=== PATIENT | male | born 1950 | race Asian ===

== ENCOUNTER 2024-12-21 16:46 | Inpatient (IN) | payer MEDICARE ==
[~2024-12-21] VITALS: Ht 170.2 cm; Wt 60.0 kg
[2024-12-21] MEDS ORDERED: DILTIAZEM HCL 5 MG/ML 5 ML VIAL IVP ONE (17:02)
[2024-12-21] MEDS ORDERED: LABETALOL HCL 5 MG/ML 20 ML VIAL IVP ONE (17:03)
[2024-12-21] MEDS: LABETALOL HCL 5 MG/ML 20 ML VIAL IVP ONE ×2 (17:08→17:30)
[2024-12-21] MEDS ORDERED: 0.9% SODIUM CHLORIDE 10 ML SYRINGE IVP ONE ×2 (17:19→20:50)
[2024-12-21] MEDS ORDERED: SODIUM CHLORIDE 0.9% 100 ML ONE ×2 (17:19→20:50)
[2024-12-21] MEDS ORDERED: IOHEXOL 350 MG/ML 100 ML VIAL ONE ×2 (17:19→20:50)
[2024-12-21 17:20] LABS: PLATELET COUNT (AUTO) 216 K/uL (150-450); RED BLOOD CELL COUNT(AUTO) 5.28 MIL/uL (4.50-5.90); RED CELL DISTRIBUTION WIDTH 13.6 % (11.5-14.5); WHITE BLOOD COUNT (AUTO) 6.8 K/uL (4.5-11.0)
[2024-12-21 17:31] LABS: CALCIUM, TOTAL 9.0 mg/dL (8.8-10.5); CREATININE 0.88 mg/dL (0.60-1.30); GLOMERULAR FILTR. RATE CALC > 60 mL/min (>60); GLUCOSE,RANDOM 113 mg/dL (70-110); SODIUM SERUM 135 mmol/L (136-145); UREA NITROGEN, BLOOD 17 mg/dL (7-18)
[2024-12-21 17:35] LABS: ASPARTATE AMINOTRANSFERASE 27 U/L (15-37); CHOL/HDL RATIO 4.9 (4.2-7.3); LDL CHOL (CALC.) 166 mg/dL (0-130); TOTAL PROTEIN, SERUM 8.7 g/dL (6.4-8.2)
[2024-12-21] MEDS: ASPIRIN 325 MG TABLET PO ONE (17:39)
[2024-12-21] MEDS: CLOPIDOGREL BISULFATE 300 MG TABLET PO ONE (17:39)
[2024-12-21 17:42] LABS: APPEARANCE,URINE CLEAR (CLEAR); GLUCOSE, URINE (UA) NEGATIVE (NEGATIVE); LEUKOCYTE ESTERASE ,URINE NEGATIVE (NEGATIVE); NITRATE,URINE NEGATIVE (NEGATIVE); OCCULT BLOOD,URINE NEGATIVE (NEGATIVE); PH,URINE DRUG SCREEN 7.0 (5.0-8.0); SPECIFIC GRAVITIY, URINE 1.012 (1.003-1.030)
[2024-12-21 17:42] LABS: TROPONIN I-HIGH SENSITIVITY 849 ng/L (<76)
[2024-12-21 17:52] LABS: ALCOHOL, URINE DRUG SCREEN NEGATIVE (NEGATIVE); AMPHET/METH SCREEN,URINE NEGATIVE (NEGATIVE); BARBITURATE SCREEN, URINE NEGATIVE (NEGATIVE); CANNABINOID SCREEN,URINE NEGATIVE (NEGATIVE); COCAINE SCREEN,URINE NEGATIVE (NEGATIVE); METHADONE SCREEN, URINE NEGATIVE (NEGATIVE)
[2024-12-21 17:55] LABS: SQUAMOUS EPITHELIAL CELL,UR Rare /LPF (None Seen)
[2024-12-21] MEDS ORDERED: BISACODYL 10 MG RECTAL RECTAL SUPPOSITORY PR PRN (19:15)
[2024-12-21] MEDS ORDERED: ACETAMINOPHEN 325 MG TABLET PO PRN (19:15)
[2024-12-21] MEDS ORDERED: ONDANSETRON HCL 4 MG/2 ML VIAL IVP PRN (19:15)
[2024-12-21] MEDS ORDERED: ZOLPIDEM TARTRATE 5 MG TABLET PO PRN (19:15)
[2024-12-21] MEDS ORDERED: MAGNESIUM HYDROXIDE SUSPENSION 30 ML UDCUP PO PRN (19:15)
[2024-12-21] MEDS ORDERED: LABETALOL HCL 200 MG in DEXTROSE 5%-WATER 160 ML IV PRN (19:15)
[2024-12-21] MEDS ORDERED: MORPHINE SULFATE 4 MG/ML SYRINGE IVP PRN (19:15)
[2024-12-21] MEDS ORDERED: HYDROCODONE/ACETAMINOPHEN 5-325 MG TABLET PO PRN (19:15)
[2024-12-21] MEDS ORDERED: TENECTEPLASE 50 MG/10 ML KIT IVP ONE (20:34)
[2024-12-21] MEDS: TENECTEPLASE PER STROKE PROTOCOL CLINICAL ONE (20:48)
[2024-12-21] MEDS: DOCUSATE SODIUM 100 MG CAPSULE PO SCH (21:00)
[2024-12-21] MEDS: TENECTEPLASE 50 MG/10 ML KIT IVP ONE (21:01)
[2024-12-21 22:14] LABS: TROPONIN I-HIGH SENSITIVITY 905 ng/L (<76)
[2024-12-21 23:25] LABS: TROPONIN I-HIGH SENSITIVITY 889 ng/L (<76)
[2024-12-22 02:22] LABS: TROPONIN I-HIGH SENSITIVITY 888 ng/L (<76)
[2024-12-22 05:14] LABS: PLATELET COUNT (AUTO) 226 K/uL (150-450); RED BLOOD CELL COUNT(AUTO) 5.26 MIL/uL (4.50-5.90); RED CELL DISTRIBUTION WIDTH 13.5 % (11.5-14.5); WHITE BLOOD COUNT (AUTO) 9.6 K/uL (4.5-11.0)
[2024-12-22 05:34] LABS: CALCIUM, TOTAL 9.0 mg/dL (8.8-10.5); CREATININE 0.80 mg/dL (0.60-1.30); GLOMERULAR FILTR. RATE CALC > 60 mL/min (>60); GLUCOSE,RANDOM 144 mg/dL (70-110); SODIUM SERUM 136 mmol/L (136-145); UREA NITROGEN, BLOOD 18 mg/dL (7-18)
[2024-12-22 06:24] LABS: TROPONIN I-HIGH SENSITIVITY 890 ng/L (<76)
[2024-12-22 08:00] VITALS: BP 140/77; PULSE 75; PULSE 76; RESP 21; TEMP 98.4; O2SAT 98
[2024-12-22] MEDS: PANTOPRAZOLE SODIUM 40 MG DR TABLET PO SCH (09:00)
[2024-12-22] MEDS: ATORVASTATIN CALCIUM 40 MG TABLET PO SCH (09:00)
[2024-12-22 10:25] LABS: TROPONIN I-HIGH SENSITIVITY 843 ng/L (<76)
[2024-12-22 12:00] VITALS: BP 135/67; PULSE 76; PULSE 79; RESP 21; TEMP 98.4; O2SAT 98
[2024-12-22] MEDS: POTASSIUM CHL 10 MEQ/WATER 50 ML IV PRN (13:05)
[2024-12-22] MEDS ORDERED: SODIUM CHLORIDE 0.9% 250 ML IV ONE (13:07)
[2024-12-22 16:00] VITALS: BP 135/74; PULSE 73; PULSE 78; RESP 21; TEMP 98.8; O2SAT 98
[2024-12-22 20:00] VITALS: BP 119/43; PULSE 77; RESP 18; TEMP 98.5; O2SAT 98
[2024-12-23] VITALS: BP 109/45; PULSE 70; RESP 23; TEMP 98.8; O2SAT 99
[2024-12-23 04:00] VITALS: BP 133/62; PULSE 70; RESP 16; TEMP 98.6; O2SAT 96
[2024-12-23 06:09] LABS: CALCIUM, TOTAL 8.9 mg/dL (8.8-10.5); CREATININE 0.81 mg/dL (0.60-1.30); GLOMERULAR FILTR. RATE CALC > 60 mL/min (>60); GLUCOSE,RANDOM 108 mg/dL (70-110); SODIUM SERUM 138 mmol/L (136-145); UREA NITROGEN, BLOOD 25 mg/dL (7-18)
[2024-12-23 06:16] LABS: PLATELET COUNT (AUTO) 241 K/uL (150-450); RED BLOOD CELL COUNT(AUTO) 5.25 MIL/uL (4.50-5.90); RED CELL DISTRIBUTION WIDTH 13.7 % (11.5-14.5); WHITE BLOOD COUNT (AUTO) 10.3 K/uL (4.5-11.0)
[2024-12-23 08:00] VITALS: BP 141/67; PULSE 73; PULSE 82; RESP 20; TEMP 98.6; O2SAT 96
[2024-12-23] MEDS: ASPIRIN 81 MG CHEWABLE TABLET PO SCH (09:03)
[2024-12-23] MEDS: CLOPIDOGREL BISULFATE 75 MG TABLET PO SCH (09:04)
[2024-12-23 12:00] VITALS: BP 147/71; PULSE 71; PULSE 72; RESP 18; TEMP 98.1; O2SAT 97
[2024-12-23 13:50] VITALS: BP 139/68; PULSE 71; RESP 17; TEMP 98.2; O2SAT 96
[2024-12-23 14:45] LABS: PHOSPHORUS 2.2 mg/dL (2.5-4.9)
[2024-12-23 16:20] VITALS: BP 142/69; PULSE 72; RESP 16; TEMP 98.6; O2SAT 96
== END 2024-12-23 17:20 | disposition short-term general hospital (02) | DRG 62 ==
LOC: EMS 16:46 → EDH 19:11 → ICU 12-22 07:08 → 5S 12-23 13:16
PROVIDERS: ADMIT Internal Medicine; ATTEND Internal Medicine
DX: I63.512 Cerebral infarction due to unspecified occlusion or stenosis of left middle cerebral artery (principal); G81.01 Flaccid hemiplegia affecting right dominant side; I16.1 Hypertensive emergency; R47.01 Aphasia; E87.6 Hypokalemia; I10 Essential (primary) hypertension; R29.702 NIHSS score 2; R79.89 Other specified abnormal findings of blood chemistry; E78.5 Hyperlipidemia, unspecified; R47.1 Dysarthria and anarthria; R13.10 Dysphagia, unspecified; Z79.899 Other long term (current) drug therapy; Z91.148 Patient's other noncompliance with medication regimen for other reason
CPT/HCPCS: 70450; 70496; 70498; 70551; 71045; 80048; 80053; 80061; 80307; 81001; 82948; 83036; 83735; 84100; 84132; 84484; 85025; 85610; 85730; 86850; 86900; 86901; 87081; 92526; 92610; 93005; 93306; 93880; 97116; 97163; 99291; G0378; J3101; J3480; J3490; J7050; 36415-L1; 36415-TC